=== PATIENT | female | born 1960 | race Caucasian/White ===

== ENCOUNTER 2016-10-31 07:00 | Day surgery (SDC) | payer BC ==
[2016-10-31] MEDS ORDERED: DEXAMETHASONE PRESERVATIVE FREE 10MG/ML VIAL IV ONE (11:05)
[2016-10-31] MEDS ORDERED: BUPIVACAINE 0.5% W/EPI MPF 30 ML VIAL IVP ONE (11:05)
[2016-10-31] MEDS ORDERED: LIDOCAINE 1% W/EPI 1:200,000 MPF 30ML SQ ONE (11:05)
[2016-10-31] MEDS ORDERED: PROPOFOL 10 MG/ML VIAL IV ONE (15:45)
[2016-10-31] MEDS ORDERED: FENTANYL PF 100MCG/2ML VIAL IV ONE (15:45)
[2016-10-31] MEDS ORDERED: LIDOCAINE 2% MDV (20MG/ML) 20ML VIAL IV ONE (15:45)
[2016-10-31] MEDS ORDERED: MIDAZOLAM HCL 2MG/2ML VIAL IV ONE (15:45)
--- NOTE | 2016-11-01 15:05 | Operative Note - [place] ---
DATE OF SURGERY: 10/31/16 PREOPERATIVE DIAGNOSIS: LUMBAR SPONDYLOSIS WITHOUT MYELOPATHY, ICD-10 CODE = M47.812. OPERATION: RADIOFREQUENCY RHIZOTOMY, RIGHT CERVICAL FACETS 3/4, 4/5, AND 5/6. SURGEON: RAFIA KHAN D.O. ANESTHESIA: LOCAL SEDATION. ANESTHESIA PROVIDER: ALEXANDER PRIEST CRNA. INDICATION: This patient presents with pain, which is right-sided neck. A previous rhizotomy to the left has controlled that component. Facet bocks resulted in significant relief. She presented for rhizotomy. Due to the revised insurance guidelines, she had the left first and is here for the right. Diagnostics confirm multiple levels of spondylosis. PROCEDURE: Intravenous line, vital sign monitoring, IV sedation. Prepped and draped in sterile technique. Cervical facets to the right at 3/4, 4/5, and 5/6 were identified and marked. Skin infiltrated. A #22 gauge rhizotomy cannula positioned. Stimulation trials conducted. Rhizotomy burn performed. Local with anti-inflammatory in the sites. Topical antibiotic and sterile dressing applied. We will monitor and evaluate. RAFIA KHAN D.O. Date & Time cc: Dr. Whittington JOB NUMBER: [id number] MTDD
== END 2016-10-31 08:48 | disposition home or self-care (01) ==
LOC: SUR 07:00
PROVIDERS: ATTEND Pain Medicine Interventional Pain Medicine
DX: M47.812 Spondylosis without myelopathy or radiculopathy, cervical region (principal); I10 Essential (primary) hypertension
CPT/HCPCS: 64635; 64636 ×2; 01936; J1100; J3010